=== PATIENT | male | born 1965 | race Caucasian/White ===

== ENCOUNTER 2018-02-09 08:09 | Outpatient (RCR) | payer BC, SELFPAY ==
--- NOTE | 2018-02-09 09:36 | PTDS_ITS ---
Date: 02/09/18 Referring: Ming Meeks DO M.D. Diagnosis: LLE pain, Calf tightness P.T. Diagnosis: left knee pain, ? internal derangement; calf tightness Treatment Dates: 12/31/17 - 02/09/18 Subjective: History of Present Illness: Matt states that his knee has been feeling great. He has been walking regularly and performing an exercise routine with the exercises learned here in the clinic throughout the week. He states that he had a very busy day last week, requiring a great deal of walking throughout the day , and that he realized that his knee hadn't bothered him in several days. He does note some stiffness after prolonged standing for an outdoor event, but states that the minute he started walking, his pain was gone. He's feeling very encouraged by his progress. Objective: Posture: Posture: Morbidly obese. No significant genu varus or valgus. Gait: Non-antalgic. Non-ataxic. Full TKE during stance. Palpation: Patella mobility is WNL. No swelling or joint effusion noted. ROM: Hip and knee ROM are WNL on the left. HS length allows 60 degrees of SLR. Treatment: Today's session consisted of review of HEP, with patient reporting good compliance. He received manual stretching to the left HS and gastroc, as well as patella mobs and grade II AP and PA tibiofemoral joint mobs in loose packed position. Treatment Time: 20 minutes Assessment: Matt has demonstrated good compliance with a progressive HEP, and is now essentially painfree. HE's been strongly encouraged to continue with his HEP on the terminal carman for management of knee pain as well as facilitating weight loss. STG: Full knee extension, allowing for non-antalgic gait (MET) Able to initiate strengthening program without increased pain (MET) LTG: __X__ Return to premorbid level of function. (MET) __X__ Return to full, pain-free, functional mobility. (MET) __X__ Independent with self-maintenance program. (MET) __x__ Able to stand for sporting events (MET) __x__ Able to sleep through the night (MET) Plan: D/C to HEP
== END 2018-02-20 23:59 | disposition home or self-care (01) ==
LOC: PT 08:09
PROVIDERS: PCP Internal Medicine Sleep Medicine; Referring Provider Internal Medicine Sleep Medicine; Visit Provider Internal Medicine Sleep Medicine
DX: M25.562 Pain in left knee (principal); M79.662 Pain in left lower leg
CPT/HCPCS: 97140

== ENCOUNTER 2024-04-12 10:44 | Outpatient (CLI) | payer BC, SELFPAY ==
[2024-04-12 11:09] LABS: Hemoglobin A1C 8.3 % (<5.7)
[2024-04-12 12:19] LABS: ALT 35 U/L (16-63); AST 22 U/L (15-37); Albumin 3.2 g/dL (3.4-5.0); Alkaline Phosphatase 72 U/L (46-116); Anion Gap 6.4 mmol/L (3-11); BUN 14 mg/dL (7-18); Bilirubin, Total 0.53 mg/dL (0.2-1.0); CO2 27.6 mmol/L (21.0-32.0); CREATININE 1.4 mg/dL (0.70-1.30); Calcium 9.3 mg/dL (8.5-10.1); Calculated LDL 73 mg/dL (<100); Chloride 107 mmol/L (98-107); Cholesterol 137 mg/dL (<200); Estimated GFR 58.26 (mL/min/1.73m2); Glucose 158 mg/dL (74-106); HDL Cholesterol 49 mg/dL (40-60); Potassium 4.8 mmol/L (3.5-5.1); Sodium 141 mmol/L (136-145); Total Protein 7.8 g/dL (6.4-8.2); Triglyceride 77 mg/dL (<150)
[2024-04-12 18:26] LABS: PSA, Screening 0.1 ng/mL (<=3.5)
== END 2024-04-12 10:45 | disposition home or self-care (01) ==
LOC: LBO 10:45
PROVIDERS: PCP Internal Medicine Sleep Medicine; Visit Provider Family Medicine
DX: E11.9 Type 2 diabetes mellitus without complications (principal); I10 Essential (primary) hypertension; Z12.5 Encounter for screening for malignant neoplasm of prostate
CPT/HCPCS: 36415; 80053; 80061; 84153; 83036

== ENCOUNTER 2024-10-18 11:39 | Outpatient (CLI) | payer OTHER, SELFPAY ==
[2024-10-18 07:58] LABS: Hemoglobin A1C 9.8 % (<5.7)
[2024-10-18 08:03] LABS: ALT 36 U/L (16-63); AST 20 U/L (15-37); Albumin 2.9 g/dL (3.4-5.0); Alkaline Phosphatase 67 U/L (46-116); Anion Gap 8.6 mmol/L (3-11); BUN 11 mg/dL (7-18); Bilirubin, Total 0.4 mg/dL (0.2-1.0); CO2 26.4 mmol/L (21.0-32.0); CREATININE 1.4 mg/dL (0.70-1.30); Calcium 8.9 mg/dL (8.5-10.1); Chloride 104 mmol/L (98-107); Glucose 259 mg/dL (74-106); Potassium 4.4 mmol/L (3.5-5.1); Sodium 139 mmol/L (136-145); Total Protein 7.4 g/dL (6.4-8.2)
== END 2024-10-18 11:40 | disposition home or self-care (01) ==
LOC: LBO 11:40
PROVIDERS: PCP Internal Medicine Sleep Medicine; Visit Provider Family Medicine
DX: E11.9 Type 2 diabetes mellitus without complications (principal)
CPT/HCPCS: 36415; 80053; 83036